=== PATIENT | male | born 2000 | race Caucasian/White ===

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

== ENCOUNTER 2022-03-07 17:51 | Emergency (ER) | payer BC, SELFPAY ==
[2022-03-07 18:07] VITALS: BP 150/85; PULSE 127; RESP 16; TEMP 37.5; O2SAT 100
--- NOTE | 2022-03-07 18:28 | ED.URI ---
HPI - URI/Sore Throat General Chief Complaint: Upper Respiratory Infection Stated Complaint: Ear Pain Time Seen by Provider: 03/07/22 18:12 Source: patient, RN notes reviewed and old records reviewed Mode of arrival: ambulatory Limitations: no limitations History of Present Illness HPI Narrative: 21 year old male presents to express care with complaint of cough with sinus drainage and some congestion to his chest with some tightness to his chest with cough. Patient reports that he has some pain to his right ear and he has had a fever today. 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 MD elicited complaint: fever, cough, rhinorrhea and nasal congestion Onset (ago): day(s) (2) Treatments prior to arrival: ibuprofen and other (Benadryl) Related Data Allergies Allergy/AdvReac Type Severity Reaction Status Date / Time Penicillins Allergy Severe Hives and Verified 03/07/22 18:16 vomiting Review of Systems Review of Systems: CONSTITUTIONAL: Reports has felt feverish, no chills, or sweats. EYES: Denies visual changes, redness, or discharge. ENT: Positive rhinorrhea, congestion,no sore throat,positive for right otalgia. CARDIOVASCULAR: Denies chest pain, palpitations, or edema. RESPIRATORY: Positive for cough denies dyspnea. GASTROINTESTINAL: Denies abdominal pain, nausea, vomiting, or diarrhea. GENITOURINARY: Denies dysuria or hematuria. SKIN: Denies rash or itching. MUSCULOSKELETAL: Denies back pain, joint pain, or myalgia. NEUROLOGIC: Denies headache, numbness, or weakness. PSYCHIATRIC: Denies anxiety or depression. All systems reviewed & are unremarkable except as noted in HPI and below PMFSH Past Medical History Medical History (Updated 03/08/22 @ 00:00 by Alden Baldwin) ADHD Allergies Autism GERD (gastroesophageal reflux disease) Tourettes disease Social History Social History (Updated 03/11/22 @ 07:49 by Evelia Rangel NP) Tobacco type: e-cigarettes/vaping Alcohol intake: never Substance use: never Living arrangements: with family Gender identity (if verbalized by the patient): Male Comments At time of signature, agree with nursing past medical, surgical, social and family history. There is no relevant family history pertinent to the presenting complaint Exam Narrative: GENERAL: Well-appearing, well-nourished, and in no acute distress. HEAD: Normocephalic, atraumatic. EYES: PERRLA and EOMI. ENT: Nares red with clear rhinorrhea no epistaxis. Mucous membranes moist.Right TM red with dull light reflex, left TM normal with good light reflex, throat red with no lesions or swelling.post nasal drainage noted. NECK: Supple.no lymphadenopathy CHEST: Clear to auscultation. No respiratory distress.cough noted, SAO2 100% on room air HEART: Regular rate and rhythm. No murmur heard. Normal peripheral pulses. ABDOMEN: Soft, nontender, nondistended, normal active bowel sounds. EXTREMITIES: Normal range of motion. No edema. SKIN: Warm, dry, no rash. NEURO: No focal deficits. Alert and oriented x3. Course Course Level of Care: Express Care Visit Vital Signs Vital signs: Vital Signs Temperature 37.5 C 03/07/22 18:07 Pulse Rate 127 H 03/07/22 18:07 Respiratory Rate 16 03/07/22 18:07 Blood Pressure 150/85 H 03/07/22 18:07 Pulse Oximetry 100 03/07/22 18:07 Oxygen Delivery Room Air 03/07/22 18:07 Temperature 37.5 C 03/07/22 18:07 Pulse Rate 127 H 03/07/22 18:07 Respiratory Rate 16 03/07/22 18:07 Blood Pressure 150/85 H 03/07/22 18:07 Pulse Oximetry 100 03/07/22 18:07 Oxygen Delivery Room Air 03/07/22 18:07 MDM - URI/Sore Throat Differential Diagnosis Differential diagnosis: Likely upper respiratory infection, otitis media, influenza and pharyngitis Medical Records A
== END 2022-03-07 19:10 | disposition home or self-care (01) ==
PROVIDERS: Emergency Provider Registered Nurse
DX: H66.91 Otitis media, unspecified, right ear (principal); J06.9 Acute upper respiratory infection, unspecified; Z20.822 Contact with and (suspected) exposure to COVID-19; F84.0 Autistic disorder; K21.9 Gastro-esophageal reflux disease without esophagitis; Z86.16 Personal history of COVID-19
CPT/HCPCS: 87426; 99213; C9803; G0463

== ENCOUNTER 2023-12-25 14:32 | Emergency (ER) | payer OTHER, SELFPAY ==
[2023-12-25 14:44] VITALS: BP 179/108; PULSE 116; RESP 20; TEMP 36.6; O2SAT 99
--- NOTE | 2023-12-25 14:50 | ED.URI ---
HPI - URI/Sore Throat General Chief Complaint: Upper Respiratory Infection Stated Complaint: Fever/Vomiting/Sore Throat History of Present Illness HPI Narrative: patient is a 23-year-old male, without significant past medical history, presents to [facility] with 4-5 day history of URI symptoms, including nasal congestion sore throat, dry cough, low-grade fevers, body aches malaise. His last fever was approximately 24 hours ago in 99.5 F he is taking [id number] Tylenol with some relief. He denies known sick contacts or COVID-19 exposures. He has no additional associated symptoms he denies any other modifying factors Related Data Allergies Allergy/AdvReac Type Severity Reaction Status Date / Time Penicillins Allergy Severe Hives and Verified 12/25/23 14:51 vomiting Review of Systems Constitutional: Comments: refer to HPI ENT: Comments: refer to HPI [facility] Past Medical History Medical History (Updated 12/25/23 @ 14:58 by MARAH Marmolejo) ADHD Allergies Autism GERD (gastroesophageal reflux disease) Tourettes disease Social History Social History (Updated 03/11/22 @ 07:49 by Evelia Rangel NP) Tobacco type: e-cigarettes/vaping Alcohol intake: never Substance use: never Living arrangements: with family Gender identity (if verbalized by the patient): Male Exam Const: General: healthy appearing and no acute distress Nutritional Appearance: obese Orientation/consciousness: patient oriented x3 Limitations: no limitations HENMT: Head: normal to inspection Ears: external ears normal, EAC's normal and TM abnormal ( serous effusion noted bilaterally, no erythema, no purulence noted, TMs ar) Mouth: Yes Normal oral and palatal mucosa present Teeth and gingiva: dentition normal Throat: posterior oropharynx normal and uvula midline Eyes: Conjunctivae: conjunctivae normal Pupils: Equal, round and reactive pupils present EOM: EOMs intact bilaterally Neck: Neck: normal visual inspection, no lymphadenopathy and no meningeal signs Chest: Chest palpation & inspection: normal inspection of the chest Resp: Effort & Inspection: normal respiratory effort Auscultation: clear to auscultation bilaterally Other: spasmodic cough noted Cardio: Rate: regular rate Rhythm: regular rhythm GI: GI Palp: Yes Soft to palpation, No Tenderness to palpation present (GI), No Guarding due to palpation present (GI), No Rigid due to palpation, No Hernia present, No Palpable mass present and No Rebound tenderness present Skin: General skin exam: normal color Rashes: no rashes Wounds: no wounds Neuro: General: patient oriented x3, moves all extremities, no meningeal signs, no focal motor deficits and CN's II-XI intact bilaterally Cranial nerves: Yes Nystagmus not present Speech: normal speech Gait exam (Neuro): Normal gait present Extrem: General: normal to inspection, no clubbing, cyanosis or edema and no pedal edema Course Course Emergency Course: patient sounds nasally congested, his exam is consistent with viral URI. His blood pressure is elevated cough he notes that he typically does have elevated blood pressure when he comes doctor but does not monitor at home and is not treated for hypertension. He denies plan to treat with short steroid course and cough suppressant for viral symptoms and serous effusion of the TMs bilaterally, follow-up with PCP is stressed ice his blood pressure is markedly elevated today, monitoring at home, keeping a log. Patient verbalized understanding and agree with discharge planning care Level of Care: Express Care Visit ([id number]) Vital Signs Vital signs: Vital Signs Temperature 36.6 C 12/25/23 14:44 Pulse Rate 116 H 12/25/23 14:44 Respiratory Rate 20 12/25/23 14:44 Blood Pressure 179/108 H 12/25/23 14:44 Pulse Oximetry 99 12/25/23 14:44 Oxygen Delivery Room Air 12/25/23 14:44 Temperature 36.6 C 12/25/23 14:44 Pulse Rat
== END 2023-12-25 15:03 | disposition home or self-care (01) ==
PROVIDERS: Emergency Provider Nurse Practitioner Family
DX: R03.0 Elevated blood-pressure reading, without diagnosis of hypertension (principal); J06.9 Acute upper respiratory infection, unspecified; H65.03 Acute serous otitis media, bilateral; F17.290 Nicotine dependence, other tobacco product, uncomplicated; F84.0 Autistic disorder; K21.9 Gastro-esophageal reflux disease without esophagitis
CPT/HCPCS: 99213; G0463